=== PATIENT | male | born 1970 | race Caucasian/White ===

== ENCOUNTER 2017-05-28 22:16 | Emergency (ER) | payer MEDICARE, MEDICAID ==
[~2017-05-28] VITALS: Ht 177.8 cm; Wt 99.8 kg
[~2017-05-28 22:16] MED LIST: CLARITIN10 MG PO; LEVOFLOXACIN500 MG PO; MEDROL DOSEPAK4 MG PO
[2017-05-28] MEDS ORDERED: CLARITIN10 MG PO (22:30)
[2017-05-28] MEDS ORDERED: TOBREX OPHTH S2.5 ML OPH (22:35)
== END 2017-05-28 22:45 | disposition home or self-care (01) ==
LOC: ED 22:16
DX: H10.13 Acute atopic conjunctivitis, bilateral (principal)

== ENCOUNTER 2018-04-13 13:15 | Emergency (ER) | payer MEDICARE, MEDICAID ==
[~2018-04-13] VITALS: Ht 175.2 cm; Wt 102.1 kg
[~2018-04-13 13:15] MED LIST changes: +TOBREX OPHTH S2.5 ML OPH
[2018-04-13] MEDS ORDERED: VIBRAMYCIN100 MG PO (15:02)
[2018-04-13] MEDS ORDERED: PROVENTIL HFA6.7 GM INH (15:02)
== END 2018-04-13 15:31 | disposition home or self-care (01) ==
LOC: ED 13:15
DX: J40 Bronchitis, not specified as acute or chronic (principal); Z79.899 Other long term (current) drug therapy

== ENCOUNTER 2018-04-18 00:30 | Inpatient (IN) | payer MEDICARE, MEDICAID ==
[2018-04-18] VITALS (8 sets, daily range): BP systolic 108–141; BP diastolic 60–86
[~2018-04-18] VITALS: Ht 172.7 cm; Wt 102.7 kg
--- NOTE | ~2018-04-18 | EKG ---
[place], [place] ELECTROCARDIOGRAM REPORT NAME: RONALD LITTLEJOHN UNIT #: [id number] ROOM: 504 DOCTOR: VALERIA HUERTA MD,KRISH BIRTHDATE: [birth year] DOS: 04/18/2018 TIME: 1:10 a.m. Normal sinus rhythm noted. Heart rate of 78 beats per minute. KRISH SHAW MD CM:EKGRPT:ELECTROCARDIOGRAM REPORT [id number] KRISH HUERTA MD
--- NOTE | ~2018-04-18 | CON ---
[place], [place] REPORT OF CONSULTATION NAME: RONALD LITTLEJOHN UNIT #: [id number] ROOM: 504 DOCTOR: VALERIA HUERTA MDKRISH BIRTHDATE: [birth year] DOS: 04/18/2018 PULMONARY CONSULTATION, EVALUATION, MANAGEMENT CONSULTATION REQUESTED BY: Hospitalist services. REASON FOR CONSULTATION: Assess the patient for sleep apnea disorder and other respiratory symptoms. HISTORY OF PRESENT ILLNESS: This is a 48-year-old white male who has been known to me, a couple of times seen in the office in 2009, diagnosed with obstructive sleep apnea disorder at that time. The patient did not follow up with the appointment, so the treatment could not be started for sleep apnea disorder. He was admitted to the hospital this morning when the patient has been noted with increased coughing and wheezing that has been present for past several days. The symptoms have been noted gradually worsened. The patient denies symptoms of chest pain with that. The cough has been noted with greenish to yellow sputum expectoration intermittently, containing a small amount of blood in it. He denies any symptoms of chest pain or wheezing. He does have symptoms of shortness breath only with exertion that occurred recently. The patient reported symptoms of sleep apnea disorder that include chronic snoring, daytime sleepiness, dryness of the mouth upon awakening, and nocturia. REVIEW OF SYSTEMS: CONSTITUTIONAL: Fatigue and tiredness reported. There are no symptoms of fever or chills. EYES: Denies any burning, redness, or tenderness. EARS, NOSE, THROAT: Denies sore throat, hoarseness, otalgia, postnasal drainage, or epistaxis. CARDIOVASCULAR: Denies anginal pain, edema, or pain of the lower extremities. GASTROINTESTINAL: Denies dysphagia, nausea, vomiting, diarrhea, abdominal pain, hematemesis, melena, hematochezia, or abnormal weight loss history. GENITOURINARY: Denies dysuria, suprapubic pain, or hematuria. MUSCULOSKELETAL: Denies acute joint pain, redness, or tenderness. SKIN: Denies abnormal lesions or rashes. CENTRAL NERVOUS SYSTEM: Denies any symptoms of dizziness, headache, diplopia, or syncopal episodes. Remaining systems were reviewed, they were noted all negative. PAST MEDICAL HISTORY: 1. Essential hypertension. 2. Migraine headaches. 3. Obstructive sleep apnea disorder with AHI of 38 and a efren pulse oxygen saturation 81%, diagnosed in 2009. 4. Moderate obesity. PAST SURGICAL HISTORY: No major surgeries. SOCIAL HISTORY: The patient lives at home. He was noted , has 3 children. He was noted nonsmoker, but has been exposed to secondhand smoke at [place], [place] REPORT OF CONSULTATION NAME: RONALD LITTLEJOHN UNIT #: [id number] ROOM: [facility] DOCTOR: KRISH GREGORY MD BIRTHDATE: [birth year] his job. He does drink 2 beers a day. FAMILY HISTORY: About father was unknown. Mother, age of 70, has a history of bipolar disorder. HOME MEDICATIONS: Listed use of Proventil HFA inhaler, Vibramycin, Claritin, and TobraDex eye drops. The patient has also recently completed Medrol Dosepak for back pain in the end of March. ALLERGIES: No known drug allergies. PHYSICAL EXAMINATION: GENERAL: This is a 48-year-old white male patient who has been currently sitting comfortably on the bed without any acute distress. His height was recorded by the nursing staff with height of 5 feet 8 inches, weight of 226 pounds, BMI 34. VITAL SIGNS: Which have been recorded showed normal temperature, respiratory rate 50-60 or 65-75, blood pressure 108/60-138/82. The pulse oxygen saturation noted as 99% on room air. HEENT: Head was atraumatic. Eyes nonicterus. NECK: Supple. Decreased posterior pharyngeal space, high tongue base and crowding of soft tissue structures. Neck collar size is 20 inches. CARDIOVASCULAR: S1, S2 is audible. LUNGS: Clear to auscultation bilaterally. There is no wheezing. No crackles. ABDOMEN: Soft and obese. EXTREMITIES: Noted chronic obesity. CENTRAL NERVOUS SYSTEM: Cranial nerves 2-12 intact. MUSCULOSKELETAL: Without any acute deformities. SKIN: Noted without any lesions or rashes. DATA: Chest x-ray, which was done on 04/13/2018 during his assessment in the Emergency Room noted as normal study. The influenza A and B nasal washing antigen negative at that time. CBC this morning: Eosinophils 4.8%, remaining CBC is normal. CMP on 04/18/2018: Normal BUN and creatinine, glucose 121. Troponin normal. Repeat chest x-ray done this morning again was reviewed and noted without any acute cardiopulmonary disease. IMPRESSION: 1. Acute bacterial bronchitis noted with nonresponsive to the outpatient treatment, failed treatment with previous outpatient was noted with increased symptoms. 2. Eosinophilia. 3. Possible consideration for exacerbation of bronchial asthma was also considered as well with history of secondhand tobacco exposure history as well. 4. Untreated severe obstructive sleep apnea disorder with increased symptoms described by the patient. PLAN OF MANAGEMENT: I agree with the use of Solu-Medrol 40 mg b.i.d. as well as DuoNeb q. 6 hours. Use of the antibiotic, Levaquin. Collect the sputum for Gram stain and culture. Mucinex to help expectorate sputum. No other [place], [place] REPORT OF CONSULTATION NAME: RONALD LITTLEJOHN UNIT #: [id number] ROOM: [facility] DOCTOR: VALERIA HUERTA MD,KRISH BIRTHDATE: [birth year] additional treatment changes at this time will be necessary. Upon discharge, the patient will be assessed for pulmonary disease as well as sleep apnea disorder management. Thank you for allowing me to participate in the care of this patient. RKISH SHAW MD CM:CONSTR:REPORT OF CONSULTATION 1401 04/24/18 [id number] interface
[~2018-04-18 00:30] MED LIST changes: +PROVENTIL HFA6.7 GM INH; +VIBRAMYCIN100 MG PO
[2018-04-18 01:07] LABS: BASO # 0.1 10*3/uL (0.0-0.1); BASO % 0.6 % (0.0-1.0); EOS # 0.5 10*3/uL (0.0-0.4); EOS % 4.8 % (1.0-4.0); HEMATOCRIT 42.8 % (42.0-52.0); HEMOGLOBIN 14.6 g/dl (14.0-18.0); LYMPH # 3.4 10*3/uL (1.3-4.4); LYMPH % 32.3 % (27.0-41.0); MEAN CORPUSCULAR HGB 31.4 pg (27.0-31.0); MEAN CORPUSCULAR HGB CONC 34.1 g/dl (33.0-37.0); MEAN PLATELET VOLUME 10.2 fl (9.6-12.3); MONO # 1.1 10*3/uL (0.1-1.0); MONO % 10.5 % (3.0-9.0); NEUT # 5.4 10*3/uL (2.3-7.9); NEUT % 51.2 % (47.0-73.0); PLATELET COUNT AUTOMATED 269 10*3/uL (130-400); RED BLOOD COUNT 4.65 10*6/uL (4.50-5.90); RED CELL DISTRI WIDTH 12.4 % (0-14.5); WHITE BLOOD COUNT 10.5 10*3/uL (4.8-10.8)
[2018-04-18 01:23] LABS: ALBUMIN 4.1 gm/dl (3.1-4.5); ALKALINE PHOSPHATASE 62 U/L (45-117); BUN 18 mg/dl (7-24); CHLORIDE 104 mmol/L (98-107); CREATININE 1.01 mg/dL (0.70-1.30); POTASSIUM 4.1 mmol/L (3.5-5.1); SGOT/AST 22 IU/L (3-35); SGPT/ALT 37 U/L (12-78); SODIUM 139 mmol/L (136-145); TOTAL PROTEIN 7.3 gm/dL (6.4-8.2)
[2018-04-18 01:25] LABS: TROPONIN I < 0.015 ng/ml (<0.045)
[2018-04-18] MEDS ORDERED: PROVENTIL HFA6.7 GM INH (03:10)
[2018-04-18] MEDS ORDERED: LISINOPRIL20 MG PO (03:11)
[2018-04-18] MEDS ORDERED: KLONOPIN2 M1 PO (03:19)
[2018-04-18 04:40] LABS: FREE T4 1.07 ng/dl (0.76-1.46); THYROID STIM HORMONE (HS) 2.32 uIU/ml (0.358-4.75)
[2018-04-18 06:47] LABS: VITAMIN D, 25-HYDROXY 29.9 ng/mL (30-100)
[2018-04-18 09:49] LABS: BILIRUBIN NEGATIVE (NEGATIVE); BLOOD NEGATIVE (NEGATIVE); CLARITY CLEAR (CLEAR); COLOR YELLOW (YELLOW); GLUCOSE NEGATIVE (NEGATIVE); KETONE NEGATIVE (NEGATIVE); LEUKO ESTERASE NEGATIVE (NEGATIVE); NITRITE NEGATIVE (NEGATIVE); PH 5.5 (5.0-9.0); SPECIFIC GRAVITY <= 1.005 (1.005-1.030); UROBILINOGEN 0.2 E.U./dl (0.2-1.0)
[2018-04-18 10:01] LABS: WBC 0-2 wbc/hpf (0-5)
[2018-04-18] MEDS ORDERED: LEVAQUIN500 M2 PO (19:58)
[2018-04-18] MEDS ORDERED: MUCINEX1200 M1 PO (19:59)
[2018-04-18] MEDS ORDERED: CYCLOBENZAPRINE10 MG PO (20:01)
[2018-04-18] MEDS ORDERED: NAPROXEN250 MG PO (20:03)
[2018-04-18] MEDS ORDERED: VITAMIN E400 UNI1 PO (20:04)
== END 2018-04-18 20:30 | disposition home or self-care (01) | DRG 202 ==
LOC: ED 00:30 → 5E 02:23 → EDHOLD 02:23 → 5E 02:29
PROVIDERS: Emergency Medicine Emergency Medical Services; Internal Medicine
DX: J20.8 Acute bronchitis due to other specified organisms (principal); J45.901 Unspecified asthma with (acute) exacerbation; D72.1 Eosinophilia; I15.2 Hypertension secondary to endocrine disorders; E66.01 Morbid (severe) obesity due to excess calories; F32.9 Major depressive disorder, single episode, unspecified; R00.2 Palpitations; E78.5 Hyperlipidemia, unspecified; N50.819 Testicular pain, unspecified; F41.9 Anxiety disorder, unspecified; S39.012A Strain of muscle, fascia and tendon of lower back, initial encounter; Z77.22 Contact with and (suspected) exposure to environmental tobacco smoke (acute) (chronic); G43.909 Migraine, unspecified, not intractable, without status migrainosus; G47.33 Obstructive sleep apnea (adult) (pediatric); M54.41 Lumbago with sciatica, right side; X58.XXXA Exposure to other specified factors, initial encounter; Y93.89 Activity, other specified; Y92.89 Other specified places as the place of occurrence of the external cause; Y99.8 Other external cause status; Z91.14 Patient's other noncompliance with medication regimen; Z81.8 Family history of other mental and behavioral disorders; Z79.899 Other long term (current) drug therapy; Z78.9 Other specified health status; Z68.34 Body mass index [BMI] 34.0-34.9, adult

== ENCOUNTER → 2018-06-07 | Outpatient (CLI) | payer MEDICARE, MEDICAID ==
[~2018-06-07] MED LIST changes: +CYCLOBENZAPRINE10 MG PO; +KLONOPIN2 M1 PO; +LEVAQUIN500 M2 PO; +LISINOPRIL20 MG PO; +MUCINEX1200 M1 PO; +NAPROXEN250 MG PO; +VITAMIN E400 UNI1 PO
== END | disposition home or self-care (01) ==
LOC: RAD 09:53
DX: M48.061 Spinal stenosis, lumbar region without neurogenic claudication (principal)

== ENCOUNTER 2019-02-07 16:46 | Emergency (ER) | payer MEDICARE, MEDICAID ==
[~2019-02-07] VITALS: Ht 182.8 cm; Wt 86.2 kg
--- NOTE | ~2019-02-07 | EKG ---
[place], [place] ELECTROCARDIOGRAM REPORT NAME: RONALD LITTLEJOHN UNIT #: [id number] ROOM: DOCTOR: EPIPHANY DRAFT REPORT BIRTHDATE: [birth year] [facility] Test Date: 2019-02-07 Test Time: 17:31:08 Pat Name: RONALD LITTLEJOHN Department: Room: [facility] Gender: M Newsp[employer] Illustrator: MARCE : 1970 Requested By: STAS VALDES Order Number: [id number] Reading MD: Gabriel Silverman MD Measurements Intervals [place] Rate: 80 P: 48 MN: 151 QRS: 43 QRSD: 88 T: 7 QT: 375 QTc: 433 Interpretive Statements Sinus rhythm Atrial premature complex Electronically Signed On 02-08-2019 12:34:59 PDT by Gabriel Silverman MD CM:EKGRPT:ELECTROCARDIOGRAM REPORT 1731 1234 [facility] STAS VALDES MD
[2019-02-07 16:46] VITALS: BP 133/66
[2019-02-07 17:28] LABS: BASO % 0.6 % (0.0-1.0); EOS # 0.2 10*3/uL (0.0-0.4); EOS % 2.4 % (1.0-4.0); HEMATOCRIT 45.1 % (42.0-52.0); HEMOGLOBIN 15.4 g/dl (14.0-18.0); LYMPH # 2.1 10*3/uL (1.3-4.4); LYMPH % 29.6 % (27.0-41.0); MEAN CELL VOLUME 88.3 fl (80.0-94.0); MEAN CORPUSCULAR HGB 30.1 pg (27.0-31.0); MEAN CORPUSCULAR HGB CONC 34.1 g/dl (33.0-37.0); MEAN PLATELET VOLUME 10.3 fl (9.6-12.3); MONO # 0.6 10*3/uL (0.1-1.0); MONO % 7.8 % (3.0-9.0); NEUT # 4.2 10*3/uL (2.3-7.9); NEUT % 59.5 % (47.0-73.0); PLATELET COUNT AUTOMATED 243 10*3/uL (130-400); RED BLOOD COUNT 5.11 10*6/uL (4.50-5.90); RED CELL DISTRI WIDTH 12.3 % (0-14.5); WHITE BLOOD COUNT 7.1 10*3/uL (4.8-10.8)
[2019-02-07 17:42] LABS: ACT PARTIAL THROMBO TIME 22.6 SECONDS (20.8-31.5)
[2019-02-07 17:49] LABS: ALBUMIN 4.2 gm/dl (3.1-4.5); ALKALINE PHOSPHATASE 79 U/L (45-117); BUN 11 mg/dl (7-24); CHLORIDE 107 mmol/L (98-107); CREATININE 0.89 mg/dL (0.70-1.30); POTASSIUM 3.7 mmol/L (3.5-5.1); SGOT/AST 13 IU/L (3-35); SGPT/ALT 28 U/L (12-78); SODIUM 140 mmol/L (136-145); TOTAL PROTEIN 7.9 gm/dL (6.4-8.2); TROPONIN I < 0.015 ng/ml (<0.045)
[2019-02-07 18:28] VITALS: BP 114/66
== END 2019-02-07 18:53 | disposition home or self-care (01) ==
LOC: ED 16:46 → EDHOLD 18:20 → ED 18:53
PROVIDERS: Emergency Medicine
DX: F41.0 Panic disorder [episodic paroxysmal anxiety] (principal); R20.2 Paresthesia of skin; R41.0 Disorientation, unspecified; J45.909 Unspecified asthma, uncomplicated; I10 Essential (primary) hypertension; G43.909 Migraine, unspecified, not intractable, without status migrainosus; Z79.2 Long term (current) use of antibiotics; Z77.22 Contact with and (suspected) exposure to environmental tobacco smoke (acute) (chronic); Z79.899 Other long term (current) drug therapy

== ENCOUNTER 2021-12-20 11:12 | Emergency (ER) | payer MEDICARE, MEDICAID ==
[~2021-12-20] VITALS: Ht 177.8 cm; Wt 90.7 kg
[2021-12-20] MEDS ORDERED: CRESTOR20 M1 PO (11:27)
[2021-12-20] MEDS ORDERED: HYDR25T PO (11:27)
[2021-12-20 11:46] LABS: BASO # 0.1 10*3/uL (0.0-0.1); BASO % 0.9 % (0.0-1.0); EOS # 0.3 10*3/uL (0.0-0.4); EOS % 4.7 % (1.0-4.0); HEMATOCRIT 46.4 % (42.0-52.0); LYMPH # 1.6 10*3/uL (1.3-4.4); LYMPH % 28.6 % (27.0-41.0); MEAN CELL VOLUME 90.3 fl (80.0-94.0); MEAN CORPUSCULAR HGB 30.2 pg (27.0-31.0); MEAN CORPUSCULAR HGB CONC 33.4 g/dl (33.0-37.0); MEAN PLATELET VOLUME 10.1 fl (9.6-12.3); MONO # 0.5 10*3/uL (0.1-1.0); MONO % 8.9 % (3.0-9.0); NEUT # 3.1 10*3/uL (2.3-7.9); NEUT % 56.7 % (47.0-73.0); PLATELET COUNT AUTOMATED 239 10*3/uL (130-400); RED BLOOD COUNT 5.14 10*6/uL (4.50-5.90); WHITE BLOOD COUNT 5.5 10*3/uL (4.8-10.8)
[2021-12-20 11:56] LABS: ACT PARTIAL THROMBO TIME 25.5 SECONDS (20.0-32.1)
[2021-12-20 12:00] LABS: ALBUMIN 4.4 gm/dl (3.1-4.5); ALKALINE PHOSPHATASE 61 U/L (45-117); BUN 12 mg/dl (7-24); CHLORIDE 105 mmol/L (98-107); CREATININE 0.93 mg/dL (0.70-1.30); LIPASE 98 U/L (73-393); POTASSIUM 4.4 mmol/L (3.5-5.1); SGOT/AST 17 IU/L (3-35); SGPT/ALT 32 U/L (12-78); SODIUM 137 mmol/L (136-145); TOTAL PROTEIN 7.9 gm/dL (6.4-8.2)
== END 2021-12-20 15:31 | disposition home or self-care (01) ==
LOC: ED 11:12
PROVIDERS: Emergency Medicine
DX: R00.2 Palpitations (principal); Z79.899 Other long term (current) drug therapy

== ENCOUNTER 2023-07-19 22:36 | Emergency (ER) | payer OTHER ==
[~2023-07-19] VITALS: Ht 177.8 cm; Wt 95.3 kg
[~2023-07-19 22:36] MED LIST changes: +CRESTOR20 M1 PO; +HYDR25T PO
[2023-07-20] MEDS ORDERED: ZYRTEC10 M2 PO (01:19)
== END 2023-07-20 01:24 | disposition home or self-care (01) ==
LOC: ED 22:36
DX: L23.7 Allergic contact dermatitis due to plants, except food (principal); I10 Essential (primary) hypertension; F32.A Depression, unspecified; F41.9 Anxiety disorder, unspecified; G43.909 Migraine, unspecified, not intractable, without status migrainosus

== ENCOUNTER 2024-06-26 13:42 | Emergency (ER) | payer OTHER ==
[~2024-06-26] VITALS: Ht 177.8 cm; Wt 93.4 kg
[~2024-06-26 13:42] MED LIST changes: +ZYRTEC10 M2 PO
[2024-06-26] MEDS ORDERED: OMEPRAZOLE 10 MG CAP PO ONE (14:00)
[2024-06-26 14:19] LABS: BASO % 0.9 % (0.0-1.0); EOS # 0.1 10*3/uL (0.0-0.4); EOS % 2.6 % (1.0-4.0); HEMATOCRIT 46.4 % (42.0-52.0); LYMPH # 1.4 10*3/uL (1.3-4.4); LYMPH % 30.5 % (27.0-41.0); MEAN CELL VOLUME 90.8 fl (80.0-94.0); MEAN CORPUSCULAR HGB 29.9 pg (27.0-31.0); MEAN PLATELET VOLUME 10.1 fl (9.6-12.3); MONO # 0.4 10*3/uL (0.1-1.0); MONO % 8.8 % (3.0-9.0); NEUT # 2.7 10*3/uL (2.3-7.9); PLATELET COUNT AUTOMATED 258 10*3/uL (130-400); RED BLOOD COUNT 5.11 10*6/uL (4.50-5.90); RED CELL DISTRI WIDTH 12.4 % (0-14.5); WHITE BLOOD COUNT 4.7 10*3/uL (4.8-10.8)
[2024-06-26 14:39] LABS: BUN 6 mg/dl (9-23); CHLORIDE 104 mmol/L (98-107); POTASSIUM 4.2 mmol/L (3.4-5.1)
== END 2024-06-26 15:08 | disposition home or self-care (01) ==
LOC: ED 13:42
PROVIDERS: Physician Assistant Medical
DX: F41.9 Anxiety disorder, unspecified (principal); I10 Essential (primary) hypertension; Z79.899 Other long term (current) drug therapy

== ENCOUNTER 2025-04-21 15:43 | Observation (INO) | payer OTHER ==
[~2025-04-21] VITALS: Ht 177.8 cm; Wt 90.7 kg
[2025-04-21 15:51] VITALS: BP 155/84
[2025-04-21] MEDS ORDERED: LORazepam 2 MG/ML VIAL IV ONE (16:10)
[2025-04-21] MEDS ORDERED: SODIUM CHLORIDE 0.9% 1,000 ML IV ONE (16:45)
[2025-04-21 16:55] LABS: BASO % 0.5 % (0.0-1.0); EOS # 0.1 10*3/uL (0.0-0.4); EOS % 1.5 % (1.0-4.0); HEMATOCRIT 43.8 % (42.0-52.0); MEAN CELL VOLUME 89.9 fl (80.0-94.0); MEAN CORPUSCULAR HGB 30.2 pg (27.0-31.0); MEAN CORPUSCULAR HGB CONC 33.6 g/dl (33.0-37.0); MONO # 0.8 10*3/uL (0.1-1.0); MONO % 9.5 % (3.0-9.0); NEUT # 5.4 10*3/uL (2.3-7.9); NEUT % 66.4 % (47.0-73.0); PLATELET COUNT AUTOMATED 305 10*3/uL (130-400); RED BLOOD COUNT 4.87 10*6/uL (4.50-5.90); RED CELL DISTRI WIDTH 12.1 % (0-14.5); WHITE BLOOD COUNT 8.1 10*3/uL (4.8-10.8)
[2025-04-21] MEDS ORDERED: KLONOPIN1 M1 PO (17:02)
[2025-04-21 17:14] LABS: ALKALINE PHOSPHATASE 57 U/L (46-116); BUN 10 mg/dl (9-23); CHLORIDE 101 mmol/L (98-107); POTASSIUM 3.8 mmol/L (3.4-5.1); SGPT/ALT 24 U/L (5-49)
[2025-04-21 18:50] LABS: BILIRUBIN Negative (Negative); BLOOD Negative (Negative); CLARITY Clear (Clear); COLOR Yellow (Yellow); GLUCOSE Negative (Negative); KETONE Negative (Negative); LEUKO ESTERASE Negative (Negative); NITRITE Negative (Negative); PH 6.5 (4.5-8.0); UROBILINOGEN 0.2 E.U./dl (0.0-1.0)
[2025-04-21 18:57] LABS: URINE AMPHETAMINES Negative (1000ng/ml); URINE BARBITURATES Negative (200ng/ml); URINE BENZODIAZEPINES Negative (200ng/ml); URINE CANNABINOIDS (THC) Positive (50ng/ml); URINE COCAINE Negative (300ng/ml); URINE METHADONE Negative (300ng/ml); URINE OPIATES Negative (300ng/ml); URINE PHENCYCLIDINE Negative (25ng/ml)
[2025-04-21 19:25] LABS: BACTERIA TRACE; RBC 0-2 rbc/hpf (0-2); WBC 0-2 wbc/hpf (0-5)
[2025-04-21] MEDS ORDERED: BISACODYL 10 MG SUPP R PRN (22:55)
[2025-04-21] MEDS ORDERED: ACETAMINOPHEN 325 MG TAB PO PRN (22:55)
[2025-04-21] MEDS ORDERED: ACETAMINOPHEN 650 MG SUPP R PRN (22:55)
[2025-04-21] MEDS ORDERED: Magnesium Hydroxide 30 ML UDC PO PRN (22:55)
[2025-04-21] MEDS ORDERED: BISACODYL 5 MG TAB PO PRN (22:55)
[2025-04-21] MEDS ORDERED: LORazepam 1 MG TAB PO PRN (23:45)
[2025-04-22 02:15] VITALS: BP 148/62
[2025-04-22 05:56] LABS: BASO % 0.6 % (0.0-1.0); EOS # 0.2 10*3/uL (0.0-0.4); EOS % 2.4 % (1.0-4.0); MEAN CELL VOLUME 91.7 fl (80.0-94.0); MEAN CORPUSCULAR HGB 30.1 pg (27.0-31.0); MEAN CORPUSCULAR HGB CONC 32.9 g/dl (33.0-37.0); MEAN PLATELET VOLUME 10.3 fl (9.6-12.3); MONO # 0.9 10*3/uL (0.1-1.0); MONO % 12.1 % (3.0-9.0); NEUT % 57.8 % (47.0-73.0); PLATELET COUNT AUTOMATED 260 10*3/uL (130-400); RED BLOOD COUNT 4.58 10*6/uL (4.50-5.90); RED CELL DISTRI WIDTH 12.4 % (0-14.5)
[2025-04-22 06:59] LABS: ALKALINE PHOSPHATASE 53 U/L (46-116); BUN 12 mg/dl (9-23); CHLORIDE 106 mmol/L (98-107); CHOLESTEROL 114 mg/dL (<200); FREE T4 1.02 ng/dl (0.89-1.76); LDL CHOLESTEROL 54 mg/dL (9-159); POTASSIUM 4.1 mmol/L (3.4-5.1); SGPT/ALT 18 U/L (5-49); TOTAL PROTEIN 6.3 gm/dL (6.0-8.0); TRIGLYCERIDES 147 mg/dl (<150)
[2025-04-22 07:12] LABS: VITAMIN D, 25-HYDROXY 39.8 ng/mL (30-100)
[2025-04-22 07:55] VITALS: BP 102/64
[2025-04-22] MEDS ORDERED: Cetirizine Hydrochloride 10 MG TAB PO SCH (10:00)
[2025-04-22] MEDS ORDERED: LISINOPRIL 20 MG TAB PO SCH (10:00)
[2025-04-22] MEDS ORDERED: ATORVASTATIN CALCIUM 20 MG TAB PO SCH (10:00)
[2025-04-22] MEDS ORDERED: hydroCHLOROthiazide 25 MG TAB PO SCH (10:00)
[2025-04-22] MEDS ORDERED: Enoxaparin Sodium 40 MG/0.4 ML SYR SC SCH (10:00)
[2025-04-22 11:05] VITALS: BP 124/58
[2025-04-22] MEDS ORDERED: KLONOPIN1 M1 PO (11:41)
== END 2025-04-22 14:30 | disposition home or self-care (01) ==
LOC: ED 15:43 → EDHOLD 19:19
PROVIDERS: Internal Medicine; ADMIT Internal Medicine; ATTEND Internal Medicine
DX: E87.20 Acidosis, unspecified (principal); R73.9 Hyperglycemia, unspecified; E87.1 Hypo-osmolality and hyponatremia; R00.0 Tachycardia, unspecified; I10 Essential (primary) hypertension; G43.909 Migraine, unspecified, not intractable, without status migrainosus; J45.20 Mild intermittent asthma, uncomplicated; R79.1 Abnormal coagulation profile; Z79.899 Other long term (current) drug therapy